=== PATIENT | female | born 1990 | race Caucasian/White ===

== ENCOUNTER 2025-04-14 06:13 | Day surgery (SDC) | payer BC, SELFPAY ==
[2025-04-09 12:09] VITALS: BMI 30.3
[2025-04-09 12:59] LABS: Hematocrit 41.2 % (37.0-47.0); Hemoglobin 13.9 g/dL (12.0-16.0); Mean Corp Hgb Conc. 33.7 g/dL (33.0-37.0); Mean Corpuscular Volume 87.1 fL (81.0-99.0); Nucleated Red Blood Cells % 0 %; Platelet Count 243 10^3/uL (130-400); Red Cell Dist. Width 12.2 % (11.5-14.5)
[2025-04-09 13:02] LABS: HCG, Urine Qualitative Screen Negative
[2025-04-09 13:26] LABS: ALT (SGPT) 33 U/L (0-35); AST (SGOT) 25 U/L (14-36); Albumin 4.7 g/dl (3.5-5.0); Alkaline Phosphatase 96 U/L (38-126); Blood Urea Nitrogen 10 mg/dl (7-17); Calcium 9.7 mg/dl (8.4-10.2); Carbon Dioxide 29 mmol/L (22-30); Chloride 104 mmol/L (98-107); Estimated Creatinine Clearance 121 ml/min; Glucose 94 mg/dl (70-99); Potassium 4.4 mmol/L (3.5-5.1); Sodium 139 mmol/L (135-145); Total Protein 7.7 g/dl (6.3-8.2); eGFR > 60.00
[2025-04-14] VITALS (15 sets, daily range): BP systolic 97–114; BP diastolic 47–80
[2025-04-14] MEDS: ASPIRIN 325 MG PO (07:17)
[2025-04-14] MEDS: PLAVIX 75 MG PO (07:18)
--- NOTE | 2025-04-14 07:43 | ITS.CL.PN ---
Quick Technician - Procedure Note
Procedure
Procedure Note:
RIGHT HEART CATHETERIZATION (WITH SHUNT RUN) AND PATENT FORAMEN OVALE (PFO) CLOSURE
Date of procedure: April 14, 2025
Referring physician: Ignacio Berg MD
Pre-op diagnosis: Cryptogenic stroke, presence of PFO
Post-op diagnosis: Cryptogenic stroke, presence of PFO
Indication: Cryptogenic stroke
Procedures performed:
1. Percutaneous PFO closure with 25 mm Amplatzer Talisman PFO Occluder (REF #[id number] ; LOT #[id number])
2. Right heart catheterization with shunt run
3. Ultrasound-guided access
crew leader/control room operator: Mary Reyes MD, [facility]
Type of echocardiography: Intracardiac Echocardiography (ICE)
Access:
1. Two 9 Kazakh sheaths (9Fr x 11cm and 9Fr x 25cm) in the right common femoral vein using a micropuncture kit under US guidance.
Ultrasound was utilized for vascular access. The right femoral vein were visualized under ultrasound, and the vessel was patent. An image was stored permanently in the patient's medical record. Under direct ultrasound guidance, two 9 Kazakh
sheaths (11cm and 23cm) were inserted into the right common femoral vein, using a micropuncture kit through a modified Seldinger technique.
RIGHT HEART CATHETERIZATION
Hemodynamics (mmHg):
RA (m) : 8
RV (s/d,m) : 29/2, 10
PA (s/d, m) : 27/13, 20
PCWP (m) : 11
PA saturation: 80.5% on room air
AO saturation non-invasively 97% on room air
RA saturation: 79/8% on room air
RV saturation:79.3% on room air
RPA Saturation: 80.5% on room air
SVC Saturation: 77.5% on room air
IVC Saturation: 78.8% on room air
KIET saturation 98% on room air
Cardiac Output: 4.8 L/min by Miguel calculation
Cardiac Index : 2.5 L/min/m-2 by Miguel calculation
Procedure:
The patient was brought to the interventional cardiology suite in fasting state. The patient has been on plavix pre-procedurally and was given 325mg ASA and Vacomycin IV was given by Anesthesia. Bilateral femoral areas were prepped and draped in
standard sterile fashion.
The right femoral vein was accessed about 1cm apart twice using a modified Seldinger technique and two 9 Kazakh sheaths were placed 1 is below the other (short 9 Kazakh by 11 cm on the top and a long 9 Kazakh by 25 cm at the bottom. Full dose IV
heparin was given to achieve an ACT greater than 300 seconds, which was maintained throughout the procedure. After confirming that there was no significant step up on the shunt run by performing a right heart catheterization, ICE catheter was
advanced through the 9 Kazakh by 25 cm venous sheath and basic images were obtained and saved including the view of the interatrial septum and the PFO seen by color Doppler. Using ICE and fluoroscopy guidance, a 0.035' J wire was advanced from the
right femoral vein and up into the right atrium and a 6Fr. multipurpose catheter was advanced over this wire. The J-wire was removed and catheter was flushed. A Cochran wire was advanced through the multipurpose catheter and after multiple passes we
successfully crossed the PFO into the left atrium. The multipurpose catheter was advanced over the wire into the left upper pulmonary vein. The wire was removed and the catheter was flushed. A 0.035 superstiff Amplatz wire was advanced through the
multipurpose catheter and parked into the left upper pulmonary vein.
The multipurpose catheter was removed. The 9 Kazakh sheath was removed. Based on the anatomy (interatrial septal aneurysm), we decided to move forward with implantation of a 25 mm Amplatzer Talisman PFO Occluder device. On the back table, we
turned our attention to prepping the closure device. A 25 mm Amplatzer Talisman PFO Occluder device was placed in a bowl of heparinized saline. The Tuohy-Matt valve and its extension were appropriately flushed. The device was submerged in saline
and the valve and extension were slowly flush with water while the occlusion device was retracted into it, ensuring that the device was completely de-aired.
The 9 Kazakh Talisman delivery sheath was advanced over the Super Stiff Amplatz wire into the IVC. The dilator was retracted at this point to completely de-aired the system. The sheath itself was then advanced over the Super Stiff Amplatz wire
into the left atrium and the Super Stiff wire was taken out. The sheath was de-aired and flushed. We connected the sheath with the closure device assembly with a wet to wet connection. The occluder was advanced through the sheath and into the left
atrium. Left atrial disc was deployed. The entire assembly was retracted until the left atrial disc was firmly against the interatrial wall under fluoroscopy and ICE guidance. The right atrial disc was deployed under tension and allowed to settle on
the right atrial side of the septum.
Echocardiographic images were obtained in multiple views showing good placement of the occlusion device. The interatrial septum is clearly visible between the 2 discs. The discs do not appear to be interfering with the aorta. After performing
appropriate pushing and pulling of the device to ensure good placement ([place] wiggle), the device was released. Once again, echocardiography confirmed good placement. ICE catheter was then taken out.
The Talisman sheath and the 9Fr x 25mm sheath was removed from the right femoral vein and a [id number] suture was placed over access site with good hemostasis. Additional manual pressure was held for 10 minutes. The patient tolerated the
procedure well with no acute complications. She remained hemodynamically stable throughout the procedure.
Fluoro Time: 12.8 min, Dose: 108 mGy, DAP : 10.9Gy.cm2
Conclusions:
1. Successful ICE guided percutaneous PFO closure with 25 mm Amplatzer Talisman PFO Occluder (REF #[id number] ; LOT #[id number]) with no acute complications.
Recommendations:
1. Routine care post PFO closure.
2. Limited weight bearing for 2 days.
3. DAPT with aspirin and clopidogrel for 6 months, followed by aspirin indefinitely.
4. Limited echocardiogram prior to discharge.
5. Removal of [id number] stitch prior to discharge.
6. Repeat echocardiogram in 1 month with outpatient cardiology follow up.
Mary Reyes MD, [facility]
[2025-04-14 09:00] LABS: ACT-LR - POC 311 Seconds (116-155)
[2025-04-14 11:53] LABS: ACT-LR - POC 247 Seconds (116-155)
--- NOTE | 2025-04-14 13:41 | W.PN.UPDATE ---
Update Note
Progress Note Update
Pt seen post PFO closure. Right groin site without ht/bleeding. Post EKG NSR 78, no acute changes. Post procedure echo shows well-seated 22mm amplatzer PFO occluder device with no residual shunt noted by color-flow doppler, no effusion.
Pt will be on DAPT w/asa, plavix for 6 months post procedure, then stop plavix and remain on aspirin only. 1 month echo with bubble study arranged. Followup at [facility] arranged. Home later today if groin site/tele remain stable.
== END 2025-04-14 15:27 | disposition home or self-care (01) ==
LOC: CATH 06:13
PROVIDERS: ATTENDING PHYSICIAN Internal Medicine Interventional Cardiology; FAMILY PHYSICIAN Internal Medicine; OTHER PHYSICIAN Internal Medicine Cardiovascular Disease
DX: Q21.12 Patent foramen ovale (principal); Z86.73 Personal history of transient ischemic attack (TIA), and cerebral infarction without residual deficits; E78.5 Hyperlipidemia, unspecified; E66.9 Obesity, unspecified; Z68.30 Body mass index [BMI] 30.0-30.9, adult; G43.909 Migraine, unspecified, not intractable, without status migrainosus; Z79.899 Other long term (current) drug therapy; Z88.1 Allergy status to other antibiotic agents; Z88.8 Allergy status to other drugs, medicaments and biological substances; Z88.0 Allergy status to penicillin; Z79.02 Long term (current) use of antithrombotics/antiplatelets; F41.9 Anxiety disorder, unspecified; I34.0 Nonrheumatic mitral (valve) insufficiency; Z87.74 Personal history of (corrected) congenital malformations of heart and circulatory system; Z91.041 Radiographic dye allergy status
CPT/HCPCS: 93580; 93662; 36415; 80053; 81025; 85025; 85347; 93005; 93308; 93321; 93325; C1759; C1769; C1817; C1892; C1894

== ENCOUNTER 2025-05-09 02:30 | Emergency (ER) | payer BC, SELFPAY ==
[2025-05-09] VITALS (9 sets, daily range): BP systolic 99–133; BP diastolic 66–116
[2025-05-09 02:52] LABS: Hematocrit 39.1 % (37.0-47.0); Hemoglobin 12.9 g/dL (12.0-16.0); Mean Corp Hgb Conc. 33.0 g/dL (33.0-37.0); Mean Corpuscular Volume 85.6 fL (81.0-99.0); Nucleated Red Blood Cells % 0 %; Platelet Count 240 10^3/uL (130-400); Red Cell Dist. Width 12.3 % (11.5-14.5)
[2025-05-09 03:15] LABS: ALT (SGPT) 27 U/L (0-35); AST (SGOT) 19 U/L (14-36); Albumin 4.2 g/dl (3.5-5.0); Alkaline Phosphatase 76 U/L (38-126); Blood Urea Nitrogen 20 mg/dl (7-17); Calcium 8.7 mg/dl (8.4-10.2); Carbon Dioxide 24 mmol/L (22-30); Chloride 107 mmol/L (98-107); Estimated Creatinine Clearance 124 ml/min; Glucose 114 mg/dl (70-99); Potassium 3.9 mmol/L (3.5-5.1); Sodium 140 mmol/L (135-145); Total Protein 6.9 g/dl (6.3-8.2); eGFR > 60.00
--- NOTE | 2025-05-09 03:21 | ED.GENMED ---
History of Present Illness
General
Chief Complaint: Cardiac Symptoms
Source: patient and spouse
Time Seen by Provider: 05/09/25 03:07
History of Present Illness
History of Present Illness:
35-year-old female presents to the emergency room complaining of pain in her right thoracic back at the level of her scapular spine. Patient's been having pain intermittently for the past several days but became quite severe tonight. No chest pain
or shortness of breath. No fever or chills. Patient recently had a patent foramen ovale repair here at [place]. Procedure was uneventful. She does take Plavix because she had a recent right cerebellar stroke. Residual from the stroke
involves right arm paresthesias. No fever or chills. No trauma
Past History
Past History
ED Past Medical History: None
ED Past Surgical History: None
Social History
Tobacco: Non-smoker
Alcohol: Occasional
Drug: None
Personal:
Living: with family
Phy Exam
Physical Exam
Physical Exam:
General: Awake, Alert, Oriented X3. Tearful but does not appear acutely ill
Vitals: unremarkable
Head: Atraumatic
Eyes: Pupils equal, EOMI
Throat: Airway intact, no exudates
Neck: Trachea midline
Lungs: Clear and equal b/l
Heart: Regular rate, no murmurs
Abd: Soft, Nontender, No pulsatile mass
Back: Tender to palpation right paraspinal musculature thoracic region
Neuro: Nonfocal
Skin: Warm, dry, no rash
Extremities: pulses equal b/l, no edema
Course
Orders/Labs/Results
Orders:
Orders
05/09/25 02:36
Electrocardiogram (*1) Urgent
Reason for Study: Chest Pain
Chest [CR Chest - 2 Views ] Urgent
Comment:
Reason For Exam: chest pain recent heart surgery
05/09/25 02:37
EKG- Treatment ONCE
05/09/25 02:45
Complete Blood Count/With Diff Urgent
Comprehensive Metabolic Panel Urgent
Troponin I Urgent
05/09/25 03:20
CT Chest Angio W/wo Iv Contras Urgent
Comment:
Reason For Exam: r back/scapular pain, recent PFO patch
05/09/25 03:21
HYDROmorphone [Dilaudid] 0.5 mg IV NOW STA
05/09/25 04:14
Cyclobenzaprine HCl [Flexeril] 10 mg PO NOW STA
05/09/25 05:36
HYDROmorphone [Dilaudid] 1 mg IV NOW STA
05/09/25 06:32
Ondansetron Injectable [Zofran] 4 mg .ROUTE .STK-MED ONE
05/09/25 06:47
Ondansetron Injectable [Zofran] 4 mg IV NOW STA
Abnormal Lab Results
05/09/25
02:45
BUN 20 H mg/dl
(7-17)
Glucose 114 H mg/dl
(70-99)
05/09/25 02:45
05/09/25 02:45
Vital Signs
Initial and Last Documented VS:
Initial Vital Signs
Pulse Resp BP
88 12 106/71
05/09/25 02:39 05/09/25 02:39 05/09/25 02:39
Last Documented Vital Signs
Temp Pulse Resp BP Pulse Ox
98.1 F 77 10 104/66 98
05/09/25 03:04 05/09/25 06:45 05/09/25 06:45 05/09/25 06:00 05/09/25 06:45
MDM/Problems Addressed
Differential Diagnosis Includes:
Musculoskeletal pain, thorax, PE
MDM/Problems Addressed:
Patient presents complaining of pain to right scapular region. Suspect musculoskeletal given her recent instrumentation. Questionable well tomorrow certain complication of the procedure. Patient was nausea vomiting as an adverse reaction to IV
contrast. Patient states this happened when she had a cerebral angiogram at [facility]. She had persistent nausea vomiting visual problems after that procedure. Suspect this reaction was more specific to the cerebral angiogram itself rather than a
reaction to the contrast as the patient has had other CT studies with IV contrast without any problem other than feeling warm all over. Will proceed with the study.
*Radiology
Radiology exam reviewed: radiology read reviewed
*Pulse Oximetry
SaO2: 100
Oxygen Mode of Delivery: Room air
Patient hypoxic: no
*EKG
Interpreted by ED Provider?: Yes
Heart Rate: 81
Rate: normal
Rhythm: sinus
[place]: normal axis
Interval: normal interval
QRS Pattern: normal QRS
Ischemia: no ischemia
*[employer] Interpretation
Rate: normal
Interpretation: normal
Rhythm: sinus
*Critical Care Note
Total Time (30-74mins, 75-104mins- exclusive of procedures): Not Applicable
ED Attending Note
-
Portions of this chart may have been created with voice recognition software.� Occasional wrong word or��sound alike� substitutions may have occurred due to the inherent limitations of voice recognition software.
Discharge Plan
Departure
Patient Disposition: Home (Routine Discharge)
Date of Disposition: 05/09/25
Time of Disposition: 06:01
Patient with high blood pressure during this ER visit?: No
Condition: Good
Discharge Problem:
Strain of thoracic region
Prescriptions:
New
cyclobenzaprine 10 mg tablet
10 mg PO TIDPRN PRN (Reason: muscle spasm) Qty: 13 0RF
No Action
acetaminophen [Tylenol Extra Strength] 500 MG tablet
500 mg PO QIDPRN PRN (Reason: pain/fever)
atorvastatin 80 mg Tablet
80 mg PO HS
cetirizine 10 mg Tablet
10 mg PO DAILY
clopidogrel 75 mg Tablet
75 mg PO HS
ezetimibe 10 mg Tablet
10 mg PO HS
aspirin 81 mg tablet,delayed release (DR/EC)
81 mg PO DAILY Qty: 1 0RF
Referrals:
Gia Anguiano, DO [Family Provider, Internal Medicine]
Interventions
Interventions:
*Risk Screen - Suicide Last Done: 05/09/25 03:04
*General Assessment Last Done: 05/09/25 03:04
*Neglect/Abuse Screening Last Done: 05/09/25 03:04
*ED- Fall Risk Assessment Last Done: 05/09/25 03:04
*ED COVID-19 Vaccine History Last Done: 05/09/25 03:51
*ED Influenza Vaccine History Last Done: 05/09/25 03:04
*Nursing Disposition Last Done: 05/09/25 07:00
ED- Pulmonary Assessment Last Done: 05/09/25 03:25
ED- Cardiac Assessment Last Done: 05/09/25 03:25
Discharge Date and Time
Discharge Date/Time: 05/09/25 07:02
Print Language: FAROESE
[2025-05-09 03:26] LABS: Troponin I < 0.012 ng/ml
[2025-05-09] MEDS: DILAUDID 0.5 MG IV (03:44)
[2025-05-09] MEDS: FLEXERIL 10 MG PO (04:18)
[2025-05-09] MEDS: DILAUDID 1 MG IV (05:42)
[2025-05-09] MEDS: ZOFRAN 4 MG IV (06:47)
== END 2025-05-09 07:02 | disposition home or self-care (01) ==
LOC: EMR 02:30
PROVIDERS: EMERGENCY PHYSICIAN Emergency Medicine; FAMILY PHYSICIAN Internal Medicine
DX: S29.012A Strain of muscle and tendon of back wall of thorax, initial encounter (principal); X58.XXXA Exposure to other specified factors, initial encounter
CPT/HCPCS: 99284; 96374; 96375; 96376; 71046; 71275; 80053; 84484; 85025; 93005; Q9967

== ENCOUNTER → 2025-05-13 08:02 | Outpatient (REF) | payer BC, SELFPAY ==
--- NOTE | 2025-05-13 09:16 | PTCARENOTE ---
Bubble study done with Gloria, histologist technologist. INT removed. dsg placed. pressure held. No bleeding noted.
== END ==
LOC: RCS 08:02
PROVIDERS: ATTENDING PHYSICIAN Internal Medicine Interventional Cardiology; FAMILY PHYSICIAN Internal Medicine
DX: Q21.12 Patent foramen ovale (principal)
CPT/HCPCS: 93307